=== PATIENT | male | born 2000 | race Two or more races ===

== ENCOUNTER 2018-07-14 07:09 | Emergency (ER) | payer SELFPAY ==
[~2018-07-14] VITALS: Ht 175.3 cm; Wt 63.5 kg
[2018-07-14 07:09] VITALS: BP 123/73
--- NOTE | 2018-07-14 07:30 | NUR ---
seen and evaluated by Dr Ribera
== END 2018-07-14 07:49 | disposition home or self-care (01) ==
LOC: ER 07:11
DX: H10.9 Unspecified conjunctivitis (principal); Z91.040 Latex allergy status
CPT/HCPCS: 99281; A4606; Z7610; Z7502